=== PATIENT | female | born 1980 | race Caucasian/White ===

== ENCOUNTER 2020-08-02 07:13 | Outpatient (CLI) | payer BC ==
[2020-08-03 06:31] LABS: SARS-CoV-2 MS2 Positive; SARS-CoV-2 N Gene Negative; SARS-CoV-2 S Gene Negative; SARS-CoV-2 by NAA Not Detected (NotDetected); SARS-CoV-2 orf1ab Negative
== END 2020-08-02 07:14 | disposition home or self-care (01) ==
LOC: LABBT 07:13
PROVIDERS: ATTEND Orthopaedic Surgery
DX: Z01.812 Encounter for preprocedural laboratory examination (principal); Z20.828 Contact with and (suspected) exposure to other viral communicable diseases; G56.03 Carpal tunnel syndrome, bilateral upper limbs; M67.88 Other specified disorders of synovium and tendon, other site
CPT/HCPCS: 87635; U0003

== ENCOUNTER 2020-08-04 09:12 | Day surgery (SDC) | payer BC ==
[2020-08-03 12:40] VITALS: BMI 52.2
--- NOTE | 2020-08-03 13:56 | HP ---
HISTORY OF PRESENT ILLNESS: The patient is a 40-year-old female with a several year history of progressive pain and numbness in both hands, right greater than left, which has persisted despite rest, restriction of activities, wrist splint, and anti-inflammatory medication including Medrol Dosepak and meloxicam. The symptoms are now interfering with day-to-day activities. She also has noticed a nodule on the palmar aspect of her right middle finger, which causes local pain when grasping objects. There has been no injury. She has had previous electrodiagnostic studies performed in [place], which were consistent with bilateral carpal tunnel syndrome. PAST HISTORY: The patient is otherwise in good health. MEDICATIONS: She normally takes no routine medications. ALLERGIES: NO KNOWN ALLERGIES. FAMILY HISTORY: Otherwise unremarkable. SOCIAL HISTORY: Otherwise unremarkable. REVIEW OF SYSTEMS: Otherwise unremarkable. PHYSICAL EXAMINATION: GENERAL: This is a healthy heavyset female. HEENT: Unremarkable. NECK: Supple. CHEST: Clear. HEART: Regular rate and rhythm. ABDOMEN: Soft, nontender. PELVIC, RECTAL, AND BREASTS: Deferred. EXTREMITIES: Examination of her right wrist reveals no swelling or atrophy. There is a positive Tinel sign, negative Phalen test. There is subjective numbness in median nerve distribution. There is also a tender nodule in the area of the A1 camilo of the right middle finger, which is tender to touch and appears to be associated with the flexor tendon sheath. There is no definite triggering with range of motion. Examination of the left wrist reveals no swelling or atrophy, negative Tinel sign, positive Phalen test, slight subjective numbness in median nerve distribution. IMPRESSION: 1. Bilateral carpal tunnel syndrome, right symptomatic more than left. 2. Soft tissue mass, flexor tendon sheath, right middle finger. PLAN: Endoscopic, possible open right carpal tunnel release and removal of mass, tendon sheath, right middle finger. She may eventually require staged left carpal tunnel release. The nature of the surgery, length of recovery, and potential complications such as infection, loss of motion, incomplete relief, nerve injury, recurrence, need for additional treatment, repeat surgery have been discussed in detail. Job ID: [id number]
[2020-08-04] MEDS ORDERED: Ketorolac Tromethamine 30 MG/ML VIAL ONE (10:13)
[2020-08-04] MEDS ORDERED: PROPOFOL 200 MG/20 ML VIAL ONE (10:13)
[2020-08-04] MEDS ORDERED: Dexamethasone 20 MG/5 ML VIAL ONE (10:13)
[2020-08-04] MEDS ORDERED: Lidocaine 1% PF 5 ML VIAL ONE (10:13)
[2020-08-04] MEDS ORDERED: Ondansetron PF 4 MG/2 ML Vial ONE (10:13)
[2020-08-04] MEDS ORDERED: Metoclopramide HCl 10 MG/2 ML VIAL ONE (10:13)
[2020-08-04] MEDS ORDERED: Scopolamine 1.5 mg/72 hour Patch ONE (12:10)
[2020-08-04] MEDS ORDERED: Lidocaine 1% (PF) 30 ML VIAL ONE (12:15)
[2020-08-04] MEDS ORDERED: Fentanyl 100 MCG/2 ML VIAL ONE ×3 (12:19→14:00)
[2020-08-04] MEDS ORDERED: Midazolam HCl 2 mg/2 ml Vial ONE (12:22)
--- NOTE | 2020-08-04 13:58 | OP ---
DATE OF PROCEDURE: 08/04/2020 PREOPERATIVE DIAGNOSES: 1. Right carpal tunnel syndrome. 2. Soft tissue mass, tendon sheath, right 3rd finger, probable ganglion. POSTOPERATIVE DIAGNOSES: 1. Right carpal tunnel syndrome. 2. Soft tissue mass, tendon sheath, right 3rd finger, probable ganglion. PROCEDURES PERFORMED: 1. Right endoscopic carpal tunnel release. 2. Excision of mass of tendon sheath, right 3rd finger, probable ganglion. ANESTHESIA: General. DESCRIPTION OF PROCEDURE: After satisfactory anesthesia was induced in supine position, the patient was prepped and draped in routine manner. The right arm was elevated, exsanguinated with an Esmarch bandage and tourniquet inflated to 250 mmHg. The mass of the 3rd finger was addressed first. A longitudinal incision was made within the creases of the palm over the mass in the area of the A1 camilo of the 3rd finger, carried down through subcutaneous tissues, bleeding points were controlled with Bovie cautery. Using sharp and blunt dissection, the mass was identified. It appeared to be a cyst and a typical ganglion having off the tendon sheath at the proximal edge of the A1 camilo. This was excised in its entirety. The A1 camilo was split to make sure there would be no triggering. The specimen was sent to pathology and attention then directed to the carpal tunnel. A 2-cm transverse incision was made in the proximal wrist flexion crease, carried down through the subcutaneous tissues, bleeding points were controlled with Bovie cautery. Using sharp and blunt dissection, a distally based flap at deep forearm fascia was developed and retracted distally. Palmaris longus tendon was retracted radially. The proximal edge of the deep forearm fascia was split under direct visualization to make sure there was no proximal impingement of the median nerve. Synovial elevator was introduced beneath the transverse carpal ligament in line with the ring finger and the synovium cleaned from the under surface. Carpal tunnel dilators were inserted. The [employer] endoscopic carpal tunnel system was introduced beneath the transverse carpal ligament in line with the ring finger. The distal edge of the ligament was easily identified and divided in a distal to proximal direction by pulling the trigger of the assembly and withdrawing the scope proximally. This was done in several stages to make sure there was complete division of the transverse carpal ligament, which was documented with video printer. After withdrawing the scope, a carpal tunnel dilator could be inserted into the carpal tunnel and there was markedly improved passage and subcutaneous position of the instrument. The scope was reintroduced into the carpal tunnel. There was wide separation of the 2 leaves of the transverse carpal ligament. The tourniquet was released after 17 minutes. There was no excessive bleeding and the scope was withdrawn. Both wounds were thoroughly irrigated. The distal incision was closed with interrupted 3-0 nylon and the carpal tunnel incision closed with running subcuticular 3-0 nylon. Sterile dressing was applied to both incisions. The patient immobilized in a Velcro wrist splint and awakened and taken to the recovery room in stable condition. No apparent intraoperative complications. The estimated blood loss was negligible. The patient will be discharged home in satisfactory condition, instructed on ice and elevation, given written wound care instructions. She has tramadol at home for pain. She will be rechecked in my office in 10 to 14 days or sooner if there are any problems prior to that time. Job ID: [id number]
[2020-08-04] MEDS ORDERED: HYDROcodone/Acetaminophen 5/325 mg Tablet ONE (15:07)
== END 2020-08-04 15:40 | disposition home or self-care (01) ==
LOC: SDC 09:12
PROVIDERS: ATTEND Orthopaedic Surgery
PROC: 01N54ZZ Release Median Nerve, Percutaneous Endoscopic Approach (ICD-10-PCS; principal; 2020-08-04)
PROC: 0LB70ZZ Excision of Right Hand Tendon, Open Approach (ICD-10-PCS; principal; 2020-08-04)
DX: G56.03 Carpal tunnel syndrome, bilateral upper limbs (principal); M67.441 Ganglion, right hand
CPT/HCPCS: 88304; J0690; J1100; J1885; J2001; J2250; J2405; J2704; J2765; J3010

== ENCOUNTER 2022-05-11 07:37 | Outpatient (CLI) | payer BC ==
[2022-05-11 10:45] LABS: #Eosinphils 0.2 10x3/uL (0.0-0.5); #Monocytes 0.7 10x3/uL (0.0-1.1); #Neutrophils 3.9 10x3/uL (1.5-8.4); %Basophils 0.5 % (0.0-2.0); %Lymphocytes 34.1 % (18.0-47.0); %Monocytes 9.7 % (0.0-10.0); %Neutrophils 53.6 % (40.0-75.0); Hemoglobin 13.6 g/dL (12.0-15.5); Mean Corpuscular HGB CONC 33.6 g/dL (32.0-36.0); Mean Corpuscular Hemoglobin 29.1 pg (27.0-33.0); Mean Corpuscular Volume 86.7 fl (81.6-98.3); Mean Platelet Volume 11.2 fl (7.4-10.4); Platelet Count 258 10x3/uL (150-450); RBC Distribution Width 12.9 % (11.5-14.5); Red Blood Cell (RBC) Count 4.67 10x6/uL (3.90-5.03); White Blood Cell (WBC) Count 7.4 10x3/uL (3.5-10.5)
[2022-05-11 11:12] LABS: Anion Gap 12 mmol/L (10-20); BUN (Urea Nitrogen) 8 mg/dL (7.0-18.7); Calc. Creatinine Clearance 0 mL/min (70-130); Calcium 8.7 mg/dL (7.8-10.44); Carbon Dioxide 24 mmol/L (22-29); Chloride 107 mmol/L (98-107); Estimated GFR 111; Glucose 105 mg/dL (70-105); Potassium 3.9 mmol/L (3.5-5.1); Sodium 139 mmol/L (136-145)
== END 2022-05-11 07:38 | disposition home or self-care (01) ==
LOC: LABBT 07:37
PROVIDERS: ATTEND Surgery
DX: Z01.812 Encounter for preprocedural laboratory examination (principal); K43.9 Ventral hernia without obstruction or gangrene
CPT/HCPCS: 80048; 85025

== ENCOUNTER 2022-05-15 09:58 | Day surgery (SDC) | payer BC ==
[2022-05-12 10:56] VITALS: BMI 53.1
[2022-05-15] MEDS ORDERED: PROPOFOL 200 MG/20 ML VIAL ONE (10:21)
[2022-05-15] MEDS ORDERED: Rocuronium Bromide 10 MG/ML (10ML VIAL) ONE (10:21)
[2022-05-15] MEDS ORDERED: Metoclopramide HCl 10 MG/2 ML VIAL ONE (10:21)
[2022-05-15] MEDS ORDERED: Vecuronium 10 MG VIAL ONE (10:21)
[2022-05-15] MEDS ORDERED: Ketorolac Tromethamine 30 MG/ML VIAL ONE (10:21)
[2022-05-15] MEDS ORDERED: Glycopyrrolate 0.2 MG/ML 5 ML SYRINGE ONE (10:21)
[2022-05-15] MEDS ORDERED: Dexamethasone 20 MG/5 ML VIAL ONE (10:21)
[2022-05-15] MEDS ORDERED: Lidocaine 1% MPF 2 ML VIAL ONE (10:21)
[2022-05-15] MEDS ORDERED: Ondansetron PF 4 MG/2 ML Vial ONE (10:21)
[2022-05-15] MEDS ORDERED: Bupivacaine/Epinephrine 0.25% 30 ML VIAL ONE (14:12)
[2022-05-15] MEDS ORDERED: Meperidine HCl/PF 25 MG/ML VIAL ONE ×2 (14:14→15:58)
[2022-05-15] MEDS ORDERED: fentaNYL Citrate/PF 100 MCG/2 ML SYRINGE ONE (14:14)
[2022-05-15] MEDS ORDERED: SUGAMMADEX SODIUM 200 MG/2 ML VIAL ONE (14:15)
[2022-05-15] MEDS ORDERED: Famotidine/PF 20 mg/2ml Vial ONE (14:15)
[2022-05-15] MEDS ORDERED: CEFAZOLIN 2 GM VIAL ONE (14:22)
[2022-05-15] MEDS ORDERED: Sodium Chloride 0.9% 100 ML ONE (14:22)
== END 2022-05-15 17:20 | disposition home or self-care (01) ==
LOC: SDC 09:58
PROVIDERS: ATTEND Surgery
PROC: 0WUF4JZ Supplement Abdominal Wall with Synthetic Substitute, Percutaneous Endoscopic Approach (ICD-10-PCS; principal; 2022-05-15)
PROC: 8E0W4CZ Robotic Assisted Procedure of Trunk Region, Percutaneous Endoscopic Approach (ICD-10-PCS; principal; 2022-05-15)
DX: K43.9 Ventral hernia without obstruction or gangrene (principal); E66.9 Obesity, unspecified; Z68.43 Body mass index [BMI] 50.0-59.9, adult
CPT/HCPCS: C1781; J0690; J1100; J1885; J2175; J2405; J2704; J2765; J3490; S0028